=== PATIENT | male | born 1995 | race Asian ===

== ENCOUNTER 2019-11-05 02:32 | Emergency (ER) | payer SELFPAY ==
[~2019-11-05] VITALS: Ht 198.1 cm; Wt 9.1 kg
[2019-11-05 02:56] LABS: Basophils # (auto) 0.1 uL; Basophils % (auto) 0.9 % (0.0-2.0); Eosinophils # (auto) 0.2 uL; Hematocrit 39.6 % (41.0-53.0); Hemoglobin 13.7 g/dL (13.5-17.5); Lymphocytes # (auto) 2.4 uL; Lymphocytes % (auto) 42.2 % (10.0-50.0); Mean Corpuscular Hemoglobin 30.8 pg (28.0-32.0); Mean Corpuscular Hgb Conc. 34.6 g/dL (32.0-36.0); Monocytes # (auto) 0.6 uL; Monocytes % (auto) 10.7 % (0.0-12.0); Neutrophils # (auto) 2.4 uL; Neutrophils % (auto) 42.2 % (37.0-80.0); Nucleated Red Blood Cells % 0.1 %; Platelet Count (auto) 208 10^3/uL (140-450); Red Blood Cells 4.45 10^6/uL (4.5-5.90); White Blood Cell 5.6 10^3/uL (4.4-10.8)
[2019-11-05 03:18] LABS: Alanine Aminotransferase 45 U/L (16-61); Albumin 3.5 g/dL (3.4-5.0); Anion Gap 7 (5-15); Aspartate Aminotransferase 15 U/L (15-37); BUN/Creatinine Ratio 10.5; Blood Urea Nitrogen 10 mg/dL (7-18); Carbon Dioxide 27 mmol/L (21-32); Chloride 106 mmol/L (98-107); GFR African American 124 mL/min; GFR Non-African American 103 mL/min; Glucose 73 mg/dL (74-106); Magnesium 1.9 mg/dL (1.6-2.6); Potassium 3.7 mmol/L (3.5-5.1); Sodium 140 mmol/L (136-145)
[2019-11-05 03:22] LABS: Alkaline Phosphatase 87 U/L (45-117); Bilirubin, Total 0.3 mg/dL (0.2-1.0); Total Protein 7.5 g/dL (6.4-8.2)
[2019-11-05 04:01] LABS: INR 1.09 (0.9-1.15); Partial Thromboplastin Time 34.5 sec (23.64-32.05)
[2019-11-05 04:31] VITALS: BP 124/80
[2019-11-05 05:35] LABS: Alcohol, Urine < 3.0 mg/dL (0-5); Amphetamine Screen, Urine NEGATIVE (NEGATIVE); Barbiturate Scree,Urine NEGATIVE (NEGATIVE); Benzodiazephine Screen, Urine NEGATIVE (NEGATIVE); Cannabinoid Screen, Urine NEGATIVE (NEGATIVE); Cocaine Screen, Urine NEGATIVE (NEGATIVE); Opiate Scree,Urine NEGATIVE (NEGATIVE); Phencyclidine Screen, Urine NEGATIVE (NEGATIVE)
== END 2019-11-05 04:54 | disposition home or self-care (01) ==
LOC: EDBD 02:32 → ER 02:33
DX: F41.9 Anxiety disorder, unspecified (principal); Z88.0 Allergy status to penicillin
CPT/HCPCS: 36415; 71045; 80053; 80307; 83735; 83880; 84484; 85025; 85610; 85730; 93005